=== PATIENT | male | born 1950 | race Caucasian/White ===

== ENCOUNTER 2016-05-28 12:03 | Inpatient (IN) ==
[2016-05-28] MEDS ORDERED: ASPIRIN PO STA (12:14)
--- NOTE | 2016-05-28 12:24 | ED EKG INTERP ---
EKG Interpretation - EKG Time of EKG reading by physician:: 12:16 EKG Read and Signed by:: Jeffrey Vera EKG Interpretation (*Must complete 3 of following elements*): Abnormal Rate: 91 Rhythm: normal sinus rhythm Comments: nonspecific ST abnormality Attestation - Scribe Verification/Attestation Scribe:: Roula Goodwin Acting as Scribe for:: Jeffrey Vera Scribe documention review:: This chart was documented by a scribe and accurately reflects the service the provider performed and the decisions made by the provider.
[2016-05-28 12:32] LABS: MANUAL DIFF NEEDED? NO
[2016-05-28 12:33] LABS: BASO% 0.3 % (0.0-0.8); EOS# 0.09 X1000 (0.0-0.7); EOS% 0.6 % (0.0-10.0); HEMATOCRIT 36.7 % (42.0-52.0); HEMOGLOBIN 12.6 g/dL (14.0-18.0); IMM GRAN# 0.03 X1000 (0.0-0.04); IMM GRAN% 0.2 % (0.0-0.5); LYMPH# 1.65 X1000 (1.2-3.4); LYMPH% 10.7 % (20.5-51.1); MCH 32.3 PG (27-31); MCHC 34.3 g/dL (33-37); MCV 94.1 FL (81-99); MONO# 1.34 X1000 (0.11-0.59); MONO% 8.7 % (1.7-9.3); NEUT% 79.5 % (42.2-75.2); PLT 137 X1000 (130-400)
[2016-05-28 12:49] LABS: INR 0.98 (0.86-1.15); PROTIME 13.3 Seconds (12.1-15.5)
[2016-05-28 12:50] LABS: PTT PL 31.4 Seconds (22.6-43.9)
[2016-05-28] MEDS ORDERED: NS 1,000 ML IV ONE ×3 (13:01→15:20)
[2016-05-28 13:02] LABS: ALBUMIN 3.4 g/dL (3.5-5.0); CALCIUM 8.4 mg/dL (8.8-10.2); MAGNESIUM 1.6 mg/dL (1.5-2.7); POTASSIUM 4.4 mmol/L (3.5-5.1); TOTAL BILIRUBIN 0.5 mg/dL (0.20-1.00); TOTAL PROTEIN 5.8 g/dL (6.3-8.3)
--- NOTE | 2016-05-28 13:03 | PROVIDER DOCUMENTATION ---
HPI-Neurological Disorder - General Chief Complaint: Weakness Stated Complaint: WEAKNESS Time Seen by Provider: 05/28/16 12:33 Source: patient Allergies/Adverse Reactions: Patient Allergies Allergy/AdvReac Type Severity Reaction Status Date / Time No Known Allergies Allergy Verified 03/18/15 18:13 Home Medications: ATORVAstatin [Lipitor] 20 mg PO QHS 03/18/15 Atenolol 25 mg PO DAILY 03/18/15 Cilostazol 100 mg PO BID 03/18/15 Citalopram Hydrobromide [Citalopram HBr] 20 mg PO DAILY 03/18/15 Diclofenac Sodium 75 mg PO BID 03/18/15 Gabapentin 300 mg PO QHS 03/18/15 Lisinopril 10 mg PO DAILY 03/18/15 Oxycodone HCl [Roxicodone] 30 mg PO BID 03/18/15 - History of Present Illness-Neuro Nature of Presenting Problem: Pt is 65 y/o M presents to the ED with generalized weakness. Pt's friend states he has had prior episodes of pain but this episode is worse. Pt's friend states falling three times last night due to being off balance. Pt's friend states Pt had a mini stroke six months ago. Pt states smokes a pack of cigarettes a day. Pt's friend states Pt has had F but no sick contact. Headache Location: reports: other (no CASTELAN). denies: frontal, temporal, occipital , parietal, global Onset/Duration: reports: 2 days ago, last night Timing: reports: still present, intermittent Context: reports: none Character of Altered Mental Status: reports: disoriented, confused, decreased responsiveness Any recent trauma/injury?: reports: none Character of Deficits: reports: impaired speech New weakness or altered sensation location:: reports: general (diffuse) Cognitive Baseline: alert, oriented x3 Gait Baseline: walks without assistance Associated Symptoms: reports: decreased ability to walk or stand, trouble walking, weakness. denies: headache, dizziness, neck/back pain, fever/chills, loss of consciousness, muscle spasms, numbness in legs/feet, vomiting Similar Symptoms Previously?: Yes Recently seen or treated by another doctor?: No Review of Systems - Adult - REVIEW OF SYSTEMS - ADULT Constitutional: reports: fever. denies: chills Eyes: denies: blurred vision, double vision Ears, Nose, Mouth & Throat: denies: ear pain, nose pain, throat pain Cardiovascular: denies: chest pain, heart murmur, irregular heart rate Respiratory: denies: cough, shortness of breath, wheezing Gastrointestinal: denies: abdominal pain, diarrhea, nausea, vomiting Genitourinary: denies: dysuria, hematuria Musculoskeletal: reports: bone pain, back pain, joint pain. denies: neck pain Integumentary: denies: hives, itching Neurological: denies: dizziness/vertigo, headache/migraines Psychiatric: reports: no symptoms reported Endocrine: reports: no symptoms reported Hematologic/Lymphatic: reports: no symptoms reported Allergic/Immunologic: reports: no symptoms reported All Other Systems: Reviewed and Negative Past History - Adult - PAST MEDICAL HISTORY-ADULT Review of Records: reports: Nursing Assessment Review, Medications Reviewed, Social history reviewed & non-contributory. Major Childhood Illnesses: reports: denies history Cardiovascular: reports: HTN Respiratory: reports: COPD, sleep apnea Gastrointestinal: reports: denies history Obstetrical/Gynecological: reports: denies history Genitourinary: reports: denies history Musculoskeletal: reports: denies history Neurological: reports: denies history Psychiatric: reports: anxiety, depression Endocrine/Immune: reports: denies history Other Conditions: reports: denies history - PRIOR SURGERIES/PROCEDURES Surgical/Procedure History: reports: orthopedic (extremity), back/neck - IMMUNIZATION STATUS Childhood Immunizations: See Nurse Assessment Flu Vaccine: See Nurse Assessment - FAMILY HISTORY Family History: reviewed, not pertinent - SOCIAL HISTORY Smoking: cigarettes, greater than 1 pack/day Provider spent 3-5 mins advising pt. on dangers of tobacco.: Discussed manners to quit use, and f/u contacts for add'l counseling. Substance Use: denies Living Situation: family Physical Exam- Neurological - Physical Exam-Neuro General Appearance: appears well, alert, no apparent distress, slow to respond Eye Exam: bilateral eye: normal inspection, PERRL, EOMI HENMT: normocephalic/atraumatic, moist mucous membranes, normal ENT inspection, TMs normal, pharynx normal Head Injury: no evidence of injury Neck: non-tender, full range of motion, supple, normal inspection Respiratory: chest non-tender, lungs clear, normal breath sounds, no pleuratic chest pain, no respiratory distress, no accessory muscle use Cardiovascular: normal peripheral pulses, regular rate, rhythm, no edema, no gallop, no JVD, no murmur Abdominal Exam: normal bowel sounds, non tender, soft, no organomegaly, no pulsatile mass Lymphatic: no adenopathy Extremity: normal range of motion, non-tender, normal gait, normal inspection, no pedal edema, no calf tenderness, normal capillary refill, 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 Exam: normal hearing, normal speech, PERRL Coordination/Gait: normal finger to nose, normal gait, negative Romberg's sign Motor/Sensory: no motor deficit, no sensory deficit, no pronator drift, negative Babinski's sign Neurologic: abnormal gait, motor weakness, other (ataxia LLE and bilateral upper extremity) Integumentary: normal color, normal turgor, warm/dry Psych/Mental Status: normal mood/affect, normal thought content, normal thought process, oriented x 3, disheveled Progress - PLAN OF CARE/RESULTS Progress/Plan/Lab Results: Laboratory Tests 05/28/16 05/28/16 05/28/16 12: 12: 12:29 WBC RBC Hgb Hct MCV MCH MCHC RDW Std Deviation Plt Count MPV Immature Gran % (Auto) Neut % (Auto) Lymph % (Auto) [place] % (Auto) Eos % (Auto) Baso % (Auto) Immature Gran # (Auto) Neut # Lymph # [place] # Eos # Baso # PT INR APTT (Factor Assay) D-Dimer Sodium 130 L Potassium 4.4 Chloride 97 L Carbon Dioxide 18 L Anion Gap 16 BUN 26 H Creatinine 2.0 H Estimated GFR/1.73 m2 34 BUN/Creatinine Ratio 13 Glucose 95 Calculated Osmolality 265 Calcium 8.4 L Magnesium 1.6 Total Bilirubin 0.50 AST 69 H ALT 28 Alkaline Phosphatase 62 Troponin T 0.071 Rrk-N-Bgkahjuujma Pept 3841 H Total Protein 5.8 L Albumin 3.4 L Globulin 2.0 Albumin/Globulin Ratio 1.0 05/28/16 05/28/16 12:29 12:29 WBC 15.49 H RBC 3.90 L Hgb 12.6 L Hct 36.7 L MCV 94.1 MCH 32.3 H MCHC 34.3 RDW Std Deviation 13.6 Plt Count 137 MPV 10.0 Immature Gran % (Auto) 0.2 Neut % (Auto) 79.5 H Lymph % (Auto) 10.7 L [place] % (Auto) 8.7 Eos % (Auto) 0.6 Baso % (Auto) 0.3 Immature Gran # (Auto) 0.03 Neut # 12.34 H Lymph # 1.65 [place] # 1.34 H Eos # 0.09 Baso # 0.04 PT 13.3 INR 0.98 APTT (Factor Assay) 31.4 D-Dimer 1.43 H Sodium Potassium Chloride Carbon Dioxide Anion Gap BUN Creatinine Estimated GFR/1.73 m2 BUN/Creatinine Ratio Glucose Calculated Osmolality Calcium Magnesium Total Bilirubin AST ALT Alkaline Phosphatase Troponin T Iyt-K-Ladpdsbwqyw Pept Total Protein Albumin Globulin Albumin/Globulin Ratio Orders Category Date Time Status Cardiac Monitoring DIRECTED Care 05/28/16 12:15 Active Oxygen Therapy- ED Nursing DIRECTED Care 05/28/16 12:15 Active Saline Loc NOW Care 05/28/16 12:15 Active CHEST-2 VIEWS [RAD] Stat Exams 05/28/16 12:15 Taken HEAD W/O CONTRAST [CT] Stat Exams 05/28/16 13:00 Ordered ABG [RESP] Routine Lab 05/28/16 13:06 Ordered CBC WITH ELECTRONIC DIFF [HEME] Stat Lab 05/28/16 12:29 Completed CK PROFILE [SP CHEM] Stat Lab 05/28/16 12:29 Results COMPREHENSIVE METABOLIC PANEL [CHEM] Stat Lab 05/28/16 12:29 Results D-DIMER PL [COAG] Stat Lab 05/28/16 12:29 Completed LACTATE, PLASMA [CHEM] Stat Lab 05/28/16 13:06 Ordered MAGNESIUM [CHEM] Stat Lab 05/28/16 12:29 Results PRO B-NATRIURETIC PEPTIDE Stat Lab 05/28/16 12:[address]IME WITH INR [address] [COAG] Stat Lab 05/28/16 12:[address] [COAG] Stat Lab 05/28/16 12:29 Completed TROPONIN T Stat Lab 05/28/16 12:29 Completed UA [URINALYSIS PL W/POSS RFLX CULT] [URINALYSIS] Stat Lab 05/28/16 13:06 Uncollected 0.9% Sodium Chloride Inj [Ns] 1,000 ml Med 05/28/16 13:01 Active IV 999 mls/hr Albuterol 2.5MG/Ipratrop 0.5MG [Duoneb (A & A)] Med 05/28/16 13:06 Discontinued 9 ml INH NOW ONE Aspirin Med 05/28/16 12:14 Discontinued 325 mg PO STAT STA Aerosol Treatments Routine Oth 05/28/16 13:07 Active Aerosol Treatments Stat Oth 05/28/16 13:07 Active EKG [EKG] Stat Ther 05/28/16 12:15 Ordered Vital Signs - 24 hr 05/28/16 05/28/16 12:16 12:37 Temperature 98 F 98.6 F Pulse Rate 91 H 90 Respiratory 18 23 Rate Blood Pressure 084/045 83/45 O2 Sat by Pulse 98 93 L Oximetry Laboratory Tests 05/28/16 05/28/16 05/28/16 12:16 12:29 12:29 WBC RBC Hgb Hct MCV MCH MCHC RDW Std Deviation Plt Count MPV Immature Gran % (Auto) Neut % (Auto) Lymph % (Auto) [place] % (Auto) Eos % (Auto) Baso % (Auto) Immature Gran # (Auto) Neut # Lymph # [place] # Eos # Baso # PT INR APTT (Factor Assay) D-Dimer Sodium 130 L Potassium 4.4 Chloride 97 L Carbon Dioxide 18 L Anion Gap 16 BUN 26 H Creatinine 2.0 H Estimated GFR/1.73 m2 34 BUN/Creatinine Ratio 13 Glucose 95 POC Glucose 91 Calculated Osmolality 265 Calcium 8.4 L Magnesium 1.6 Total Bilirubin 0.50 AST 69 H ALT 28 Alkaline Phosphatase 62 Creatine Kinase 3008 H Creatine Kinase Index 2.8 H CK-MB (CK-2) 82.74 H Troponin T 0.071 Tgg-V-Azdfkhppgyl Pept Total Protein 5.8 L Albumin 3.4 L Globulin 2.0 Albumin/Globulin Ratio 1.0 Plasma Lactate 05/28/16 05/28/16 05/28/16 12:29 12:29 12:29 WBC 15.49 H RBC 3.90 L Hgb 12.6 L Hct 36.7 L MCV 94.1 MCH 32.3 H MCHC 34.3 RDW Std Deviation 13.6 Plt Count 137 MPV 10.0 Immature Gran % (Auto) 0.2 Neut % (Auto) 79.5 H Lymph % (Auto) 10.7 L [place] % (Auto) 8.7 Eos % (Auto) 0.6 Baso % (Auto) 0.3 Immature Gran # (Auto) 0.03 Neut # 12.34 H Lymph # 1.65 [place] # 1.34 H Eos # 0.09 Baso # 0.04 PT 13.3 INR 0.98 APTT (Factor Assay) 31.4 D-Dimer 1.43 H Sodium Potassium Chloride Carbon Dioxide Anion Gap BUN Creatinine Estimated GFR/1.73 m2 BUN/Creatinine Ratio Glucose POC Glucose Calculated Osmolality Calcium Magnesium Total Bilirubin AST ALT Alkaline Phosphatase Creatine Kinase Creatine Kinase Index CK-MB (CK-2) Troponin T Fyu-X-Txjwibphhoz Pept 3841 H Total Protein Albumin Globulin Albumin/Globulin Ratio Plasma Lactate 05/28/16 13:20 WBC RBC Hgb Hct MCV MCH MCHC RDW Std Deviation Plt Count MPV Immature Gran % (Auto) Neut % (Auto) Lymph % (Auto) [place] % (Auto) Eos % (Auto) Baso % (Auto) Immature Gran # (Auto) Neut # Lymph # [place] # Eos # Baso # PT INR APTT (Factor Assay) D-Dimer Sodium Potassium Chloride Carbon Dioxide Anion Gap BUN Creatinine Estimated GFR/1.73 m2 BUN/Creatinine Ratio Glucose POC Glucose Calculated Osmolality Calcium Magnesium Total Bilirubin AST ALT Alkaline Phosphatase Creatine Kinase Creatine Kinase Index CK-MB (CK-2) Troponin T Kkb-Q-Oywokyxzykg Pept Total Protein Albumin Globulin Albumin/Globulin Ratio Plasma Lactate 1.1 - XRAY 1 XRAY: Bilateral XRAY Study: Chest Impression: Abnormal XRAY Interpretation: bilateral infiltrates - CT/MRI 1 CT Study: Head Impression: Normal CT Results: no acute disease or changes from prior - CONSULTS/PCP/HOSPITALIST Notification #1 *Consult/PCP/Hospitalist*: Dr. Haddad Time Discussed: 13:43 (Dr. Haddad accepted admit ) Reason/Comments: Dr. Vera consults with Dr. Haddad about admit of Pt Consult Disposition: Admit Departure - Departure Time of Disposition Order: 14:15 DIAGNOSIS: Rhabdomyolysis Qualifiers: Rhabdomyolysis type: non-traumatic Qualified Code(s): M62.82 - Rhabdomyolysis Pneumonia Qualifiers: Pneumonia type: due to unspecified organism Laterality: bilateral Lung location : unspecified part of lung Qualified Code(s): J18.9 - Pneumonia, unspecified organism Disposition: ADMITTED INPATIENT 09 Certified Medical Emergency: Emergent Condition: Stable Attestation - Scribe Verification/Attestation Scribe:: Roula Goodwin Acting as Scribe for:: Jeffrey Vera Scribe documention review:: This chart was documented by a scribe and accurately reflects the service the provider performed and the decisions made by the provider.
[2016-05-28] MEDS ORDERED: DUONEB (A & A) INH ONE (13:06)
[2016-05-28 13:13] LABS: BLOOD TYPE ARTERIAL; SAMPLE BLOOD
[2016-05-28] MEDS ORDERED: LEVAQUIN 750 MG/D5W 150 ML IV ONE (13:13)
--- NOTE | 2016-05-28 13:25 | EKG Report ---
Test Performed on : 05/28/2016 12:16:54 PM Test Reason : CHEST PAIN Blood Pressure : / mmHG Vent. Rate : 091 BPM Atrial Rate : 091 BPM P-R Int : 152 ms QRS Dur : 072 ms QT Int : 354 ms P-R-T Axes : 054 056 017 degrees QTc Int : 435 ms Normal sinus rhythm. Nonspecific ST abnormality Abnormal ECG No previous ECGs available Unconfirmed Result
[2016-05-28 13:26] LABS: CK INDEX 2.8 (0.0-2.5); CK-MB 82.74 ng/mL (0.0-5.0)
[2016-05-28] MEDS ORDERED: ZOSYN 3.375 GM/NS 50 ML IV ONE (13:34)
--- NOTE | 2016-05-28 13:36 | Diag Imaging Result Document ---
PROCEDURE NAME: CHEST-2 VIEWS - 05/28/2016 FRONTAL AND LATERAL CHEST, 2 VIEWS: FINDINGS: There are dense infiltrates throughout the left lung and in the upper right lung. Heart is not enlarged. The vessels are not distended. No pleural effusions. No free air beneath the diaphragm. Mild scoliosis. IMPRESSION: Bilateral infiltrates.
--- NOTE | 2016-05-28 14:10 | Diag Imaging Result Document ---
PROCEDURE NAME: HEAD W/O CONTRAST - 05/28/[address]: A CT dose reduction protocol was used. COMPARISON: 03/18/2015. FINDINGS: There is moderate to severe patient motion artifact throughout the exam. The ventricles and sulci are grossly normal. No intracranial mass or hemorrhage. The skull is intact. There is some chronic sinusitis of ethmoid air cells and the right maxillary sinus, stable from prior. IMPRESSION: No acute disease or change from prior. [facility]
[2016-05-28 14:15] LABS: BE -7.1 mmoll (-3.0-3.0); DRAW SITE L RADIAL; METHB 0.6 % (0.0-1.5); O2(CT) 14.4 mL/dL (15.0-23.0); PCO2(98.6) 44 mmHg (35-45); PO2(98.6) 69 mmHg (60-100); SAO2 96.7 % (95.0-100.0); THB 11.7 g/dL (11.5-17.4); pH(98.6) 7.26 (7.35-7.45)
[2016-05-28 14:20] LABS: ALLEN TEST YES; MODALITY CANNULA
[2016-05-28] MEDS ORDERED: NS 2,000 ML ONE (15:21)
[2016-05-28] MEDS ORDERED: DOPAMINE 800 MG/D5W (PARKWAY ONLY!) 250 ML IV ONE (15:30)
[2016-05-28] MEDS ORDERED: NS 500 ML IV ONE (15:33)
[2016-05-28 17:32] LABS: BE -8.4 mmoll (-3.0-3.0); BLOOD TYPE ARTERIAL; DRAW SITE L RADIAL; METHB 1.2 % (0.0-1.5); PCO2(98.6) 47 mmHg (35-45); PO2(98.6) 79 mmHg (60-100); SAMPLE BLOOD; SAO2 96.1 % (95.0-100.0); THB 11.9 g/dL (11.5-17.4); pH(98.6) 7.22 (7.35-7.45)
[2016-05-28] MEDS ORDERED: SODIUM BICARBONATE 8.4% IV ONE (17:36)
[2016-05-28] MEDS ORDERED: VANCOMYCIN IV PER PHARMACY MISC SCH (17:45)
[2016-05-28 17:47] LABS: ALLEN TEST YES; MODALITY VENTIMASK
[2016-05-28 18:34] LABS: UR AMPHETAMINES QUAL NONE DETECTED (NONE DETECT); UR BARBITUATES QUAL NONE DETECTED (NONE DETECT); UR BENZODIAZEPIN QUAL NONE DETECTED (NONE DETECT); UR COCAINE QUAL NONE DETECTED (NONE DETECT); UR MDMA QUAL NONE DETECTED (NONE DETECT); UR METHADONE QUAL NONE DETECTED (NONE DETECT)
[2016-05-28 18:35] LABS: UR CANNABINOIDS QUAL NONE DETECTED (NONE DETECT); UR METHAMPHETAMINE QUAL NONE DETECTED (NONE DETECT); UR OPIATES QUAL NONE DETECTED (NONE DETECT); UR OXYCODONE QUAL PRESUMPTIVE POSITIVE (NONE DETECT); UR PCP QUAL NONE DETECTED (NONE DETECT); UR TCA QUAL NONE DETECTED (NONE DETECT)
[2016-05-28] MEDS: PROTONIX IV SCH (18:57)
[2016-05-28] MEDS: SODIUM BICARBONATE 8.4% 150 MEQ in D5W 1,000 ML IV SCH (18:58)
[2016-05-28] MEDS ORDERED: VANCOMYCIN 2,000 MG in NS 500 ML IV ONE (19:00)
[2016-05-28] MEDS ORDERED: SODIUM BICARBONATE 8.4% ONE (19:01)
[2016-05-28] MEDS ORDERED: OFIRMEV 1000 MG/ISOTONIC SOLN 100 ML IV ONE (19:04)
[2016-05-28 19:07] LABS: URINE CULTURE PL NEEDED? NO; URINE SOURCE CATH
[2016-05-28 19:11] LABS: BILIRUBIN URINE NEGATIVE (NEGATIVE); BLOOD URINE 1+ (NEGATIVE); CLARITY CLEAR (CLEAR); COLOR YELLOW; GLUCOSE URINE NEGATIVE (NEGATIVE); LEUKOCYTES URINE NEGATIVE (NEGATIVE); NITRITE URINE NEGATIVE (NEGATIVE); PROTEIN URINE TRACE mg/dL (NEGATIVE); UROBILINOGEN URINE NORMAL
[2016-05-28] MEDS: ATIVAN IV PRN (19:45)
[2016-05-28] MEDS: NS 1,000 ML IV SCH (19:45)
[2016-05-28 19:55] LABS: URINE CAST GRANULAR PRESENT /LPF; URINE EPITHELIAL CELLS <10 /HPF (<10); URINE RBC <10 /HPF (<10); URINE WBC <10 /HPF (<10)
[2016-05-28 19:56] LABS: URINE CRYSTAL NONE SEEN /HPF
[2016-05-28] MEDS: ZOSYN 3.375 GM/NS 50 ML IV SCH (20:05)
--- NOTE | 2016-05-28 20:05 | HISTORY AND PHYSICAL ---
CHIEF COMPLAINT: Shortness of breath and weakness. HISTORY OF PRESENT ILLNESS: This is a 65-year-old male with hypertension, dyslipidemia, presenting with weakness. He has had increasing pain over the last several days. He fell 3 times last night due to being off balance. Reportedly a mini-stroke about 6 months ago. He has had cough. He has also had shortness of breath. In the ER, he was found to have rhabdomyolysis. He also had progressive hypotension, acute kidney injury, and has been followed since that time. He is a Dr. Raymundo patient and he was just here in February for TIA. In any case, today he is hypotensive, obviously in shock, presumably septic from bilateral infiltrates consistent with pneumonia versus developing ARDS, and he was admitted for treatment. PAST MEDICAL HISTORY: 1. Hypertension. 2. Dyslipidemia. 3. Anxiety/depression. 4. Chronic pain disorder. He seen by Dr. Bledsoe. PAST SURGICAL HISTORY: He has had back and neck surgery. FAMILY HISTORY: Reviewed and noncontributory. SOCIAL HISTORY: He is at least a pack a year smoker. He has done that for over 25 years. Reportedly occasional alcohol. He tells me he does not drink every day, but reportedly, his significant other says he drinks every day up to a pint a day. His last drink was about 2 days ago. ALLERGIES: No known drug allergies. MEDICATIONS: He is currently on by report atenolol 25 daily, cilostazol 100 b.i.d., Celexa 20 daily, diclofenac 75 b.i.d., gabapentin 300 daily, Lipitor 20 daily, lisinopril 10 daily, and oxycodone. REVIEW OF SYSTEMS: Negative. PHYSICAL EXAMINATION: VITAL SIGNS: Blood pressure 98/57, heart rate of 89, respiratory rate 20, temperature 97.8 degrees, 96% on 4 L. His blood pressure is as low as in the 70s systolic. No temperature. GENERAL: A well-developed male, in no acute distress. HEAD: Normocephalic, atraumatic. EYES: Pupils equal, round, reactive to light. Extraocular movements were intact. EAR/NOSE/THROAT: He had moist mucous membranes. NECK: Supple. CARDIOVASCULAR: Regular rate and rhythm. No murmurs, gallops, or rubs. PULMONARY: Bilateral breath sounds. Clear to auscultation. GI: Soft, nontender, nondistended. Bowel sounds are positive. EXTREMITIES: No clubbing or cyanosis. LYMPHATICS: No peripheral edema. NEUROLOGICAL: Nonfocal. LABORATORY DATA: White count 15,000. Chemistry showed a BUN and creatinine of 26 and 2, which he had normal kidney function in February. CPK of 3008 which was normal again in February. CK-MB of 82.4. Troponin was 0.071. Plasma lactate was normal. Urine drug screen positive for oxycodone, which I think he takes. Blood gas, pH 7.22, pCO2 47, PaO2 79, O2 saturation was 96%. D-dimer was elevated. PROBLEM LIST: A 65-year-old male with history of chronic obstructive pulmonary disease , hypertension, dyslipidemia, peripheral vascular disease presenting with septic shock, acute respiratory failure secondary to multilobar pneumonia. 1. Multilobar pneumonia. We will continue empiric antibiotics. He is on vancomycin, Levaquin and Zosyn. Continue breathing treatments. We will get a Pulmonary evaluation in the morning. 2. Septic shock. He has had about 4 L resuscitated. We have put him on Miki-Synephrine for blood pressure support. Wean as tolerated. 3. Acute kidney injury with the setting of rhabdomyolysis. We will continue to follow and I have initiated a bicarb drip because he is acidotic. Unclear why he is acidotic. His lactate was actually normal and it was repeated and was normal. He is not diabetic and his blood sugars have been stable. So it is an odd situation here. The alcohol levels were normal as well. It may be related to azotemia, but again, his BUN is only about 26. We will continue to follow very closely. DISPOSITION: Pending above issues. TIME SPENT: 35 minute critical care time for pressors and sepsis management. We will continue to follow.
[2016-05-28] MEDS: DUONEB (A & A) INH SCH (22:35)
[2016-05-29] MEDS: ZOSYN 3.375 GM/NS 50 ML IV SCH ×2 (01:53→08:49)
[2016-05-29] MEDS: DUONEB (A & A) INH SCH ×4 (03:01→22:36)
[2016-05-29] MEDS: ATIVAN IV PRN ×4 (04:36→17:30)
[2016-05-29 05:09] LABS: HEMATOCRIT 35.8 % (42.0-52.0); HEMOGLOBIN 11.9 g/dL (14.0-18.0); MCH 31.4 PG (27-31); MCHC 33.2 g/dL (33-37); MCV 94.5 FL (81-99); MPV 10.3 FL (7.4-10.4); RBC 3.79 XMIL (4.7-6.1)
[2016-05-29 05:29] LABS: AGAP 8; ALKALINE PHOSPHATASE 56 U/L (32-122); BUN 16 mg/dL (8-22); CALCIUM 7.7 mg/dL (8.8-10.2); CHLORIDE 104 mmol/L (98-107); COSMO 279; GOT 81 U/L (10-34); GPT 28 U/L (10-44); MAGNESIUM 1.5 mg/dL (1.5-2.7); POTASSIUM 3.9 mmol/L (3.5-5.1); SODIUM 138 mmol/L (136-145); TCO2 26 mmol/L (25-35); TOTAL PROTEIN 4.8 g/dL (6.3-8.3)
[2016-05-29] MEDS: DUONEB (A & A) INH PRN ×3 (05:30→13:14)
[2016-05-29 05:57] LABS: BE 1.6 mmoll (-3.0-3.0); BLOOD TYPE ARTERIAL; DRAW SITE R BRACHIAL; METHB 1.2 % (0.0-1.5); O2(CT) 14.8 mL/dL (15.0-23.0); PCO2(98.6) 46 mmHg (35-45); PO2(98.6) 59 mmHg (60-100); SAMPLE BLOOD; SAO2 93.8 % (95.0-100.0); THB 11.7 g/dL (11.5-17.4); pH(98.6) 7.38 (7.35-7.45)
[2016-05-29 06:00] LABS: ALLEN TEST NO; MODALITY VENTIMASK
[2016-05-29] MEDS ORDERED: LOVENOX SUBQ SCH (06:00)
[2016-05-29] MEDS ORDERED: HALDOL IV ONE ×2 (06:44→18:19)
[2016-05-29] MEDS: NS 1,000 ML IV SCH ×3 (08:52→21:21)
--- NOTE | 2016-05-29 08:58 | Diag Imaging Result Document ---
PROCEDURE NAME: CHEST-PORTABLE - 05/29/2016 PORTABLE CHEST X-RAY: COMPARISON: 05/28/2016. FINDINGS: There is slight worsening in the density of the significant bilateral infiltrates, left greater than right. The appearance suggests pneumonia. Heart size remains normal. IMPRESSION: Slight worsening in the bilateral infiltrates.
[2016-05-29] MEDS: SODIUM BICARBONATE 8.4% 150 MEQ in D5W 1,000 ML IV SCH (10:19)
[2016-05-29] MEDS: LIBRIUM PO SCH ×2 (10:45→17:11)
[2016-05-29] MEDS ORDERED: MOTRIN PO ONE (12:36)
[2016-05-29] MEDS ORDERED: TYLENOL PO PRN (12:43)
[2016-05-29] MEDS: HALDOL IV PRN ×2 (12:52→17:11)
--- NOTE | 2016-05-29 13:18 | PROGRESS NOTE ---
DATE: 05/29/2016 SUBJECTIVE: The patient is very confused and agitated today. Progressively short of breath. Dropped his oxygen levels this morning into the 70s. Required initially non-rebreather and now BiPAP. OBJECTIVE: Vital Signs: Blood pressure 195/55, heart rate of 96, respiratory rate 18, temperature 98.4 degrees, although his most recent temp I think was 101. Cardiovascular: He is tachy. Pulmonary: Diffuse rhonchi and rales. GI: Soft, nontender, nondistended. Bowel sounds are positive. LABORATORY DATA: White count is down to 9, hemoglobin and hematocrit 11 and 35, platelets of 102. Chemistry showed phosphate of 2.3, AST of 81, CPK is still 3129. Troponin has bumped up to 0.097. PROBLEM LIST: 1. Septic shock associated with multilobar pneumonia. He is still on vasopressors. We will continue treatment and follow. He is on broad-spectrum antibiotics. We are awaiting evaluation by pulmonary service. Continue volume resuscitation. 2. Multilobar pneumonia. Continue antibiotics and breathing treatments and follow. 3. Rhabdomyolysis with normal renal function. Continue bicarbonate drip and monitor. CPK still elevated; we will continue to monitor very closely. DISPOSITION: Pending multiple issues. Fortunately respiratory status is stable and positive pressure ventilation, but he may clinically deteriorate, so we will continue to closely monitor in the ICU.
[2016-05-29] MEDS ORDERED: VANCOMYCIN 1,500 MG in NS 250 ML IV SCH (14:00)
[2016-05-29] MEDS: LEVAQUIN 500 MG/D5W 100 ML IV SCH (14:28)
[2016-05-29 14:51] LABS: CK-MB 29.07 ng/mL (0.0-5.0)
--- NOTE | 2016-05-29 14:52 | EKG Report ---
Test Performed on : 05/29/2016 2:07:55 PM Test Reason : elevated troponin Blood Pressure : / mmHG Vent. Rate : 102 BPM Atrial Rate : 102 BPM P-R Int : 152 ms QRS Dur : 080 ms QT Int : 356 ms P-R-T Axes : 060 020 001 degrees QTc Int : 463 ms Sinus tachycardia. Low voltage QRS Cannot rule out Anterior infarct , age undetermined Abnormal ECG When compared with ECG of 28-MAY-2016 12:16, (Unconfirmed) No significant change was found Confirmed by Eddie Vasquez MD ([id number]) on 06/01/2016 11:55:53 PM
[2016-05-29] MEDS: ZOSYN 4.5 GM/NS 100 ML IV SCH ×2 (15:45→19:15)
--- NOTE | 2016-05-29 16:50 | CONSULTATION ---
DATE OF CONSULTATION: 05/29/2016 INDICATION FOR THE CONSULTATION: Elevated troponin. HISTORY OF PRESENT ILLNESS: Mr. Hoang is a 65-year-old male with hypertension, dyslipidemia and peripheral arterial disease. He presented with complaints of altered mental status and was found to have rhabdomyolysis, acute renal insufficiency and likely sepsis. He was placed on pressors. Currently, he is on BiPAP. Patient is not able to provide any history given his acute confusion. His is present providing this. She does report that he has had fevers over the last couple of days in addition to diffuse weakness, falls as well as dizziness. His oral intake has decreased somewhat. She does note that he takes chronic pain medications at home including or Roxicodone as well as significant alcohol intake. There has been no obvious dysuria. There have been some complaints of cough. No obvious nausea, vomiting or diarrhea. PAST MEDICAL HISTORY: 1. Significant for hypertension. 2. Hyperlipidemia. 3. Chronic pain. 4. Peripheral arterial disease. SOCIAL HISTORY: He smokes at least a pack a day. He has done that for more than 25 years. He does not drink alcohol and his significant other reports that this is up to a pint daily. Last drink was around 2 days ago. In addition, he also takes chronic narcotic prescription pain medication. REVIEW OF SYSTEMS: Unable to be obtained secondary to the patient's altered mental status. PHYSICAL EXAMINATION: Vital Signs: He is afebrile. At noon today, he was as high as 101.3. His heart rates have been in the 90s to 120s. His blood pressure is 128/82. General: He is in no acute distress. He is acutely confused. He does not open his eyes. BiPAP is in place. He does not respond to commands. HEENT: Oropharynx is moist. Poor dentition. Eye examination shows pink conjunctivae. White sclerae. Neck: Examination shows no obvious thyromegaly or thyroid tenderness. Cardiovascular: He sounds to be in a regular rate and rhythm. He has a very difficult exam secondary to movement. Extremities: He has no lower extremity edema. He has warm and well perfused lower extremities. Chest: Clear bilaterally. He has no increased work of breathing. Abdomen: Soft, nontender, nondistended. He has no obvious organomegaly. Skin Exam: Warm and dry throughout without any rashes. Neurologic/Psychiatric: Exams unable to be performed secondary to the patient's acute confusion. PERTINENT DATA: His white count is 9.2, his hematocrit is 35.8, platelet count is 102. ABG shows a pH of 7.38, pCO2 of 46, pO2 of 59 and that was performed today on 50% Ventimask. His sodium is 138, potassium 3.9, his BUN is 16 creatinine is 1. His albumin is 3. His initial cardiac enzymes are troponin was 0.071 on the . This subsequently has trended up as high as 0.331 today. His CK initially was 3008 and has trended as high as 3129 and is now down to 2860. His MB fraction is 29.07 given an index of 1.0. His albumin level was 3. His UDS was positive for oxycodone. His chest x-ray showed slight worsening of bilateral infiltrates. His electrocardiogram demonstrated sinus rhythm, 91 beats per minute. No evidence of acute ischemic changes or evidence for previous infarct. He does have slight ST depression in the lateral leads. Subsequent EKG at 1407 today continues to show slight ST depression in the lateral leads. No evidence of acute injury pattern. His head CT showed no acute disease or change from prior. ASSESSMENT: 1. Severe sepsis. 2. Acute renal insufficiency. 3. Rhabdomyolysis. 4. Elevated troponin. 5. Possible alcohol withdrawal as well as narcotic withdrawal. 6. Respiratory failure. PLAN: Patient seems acutely septic and given his presentation of acute renal insufficiency (which has since resolved) and his acute septic picture, that is likely the source of the elevation of the troponin. He does not have any signs or symptoms suggestive of acute coronary syndrome. An echocardiogram is being performed. I would initiate aspirin therapy if possible and treat the patient conservatively with supportive care presently. No further recommendations at this time.
[2016-05-29 17:00] LABS: BE 7.1 mmoll (-3.0-3.0); BLOOD TYPE ARTERIAL; DRAW SITE R RADIAL; METHB 1.2 % (0.0-1.5); PCO2(98.6) 46 mmHg (35-45); PO2(98.6) 65 mmHg (60-100); SAMPLE BLOOD; SAO2 95.8 % (95.0-100.0); THB 10.7 g/dL (11.5-17.4); pH(98.6) 7.45 (7.35-7.45)
[2016-05-29 18:03] LABS: ALLEN TEST YES; MODALITY BI PAP
[2016-05-29] MEDS: ATIVAN IV SCH ×2 (18:22→21:18)
[2016-05-29] MEDS ORDERED: MORPHINE IV ONE (18:22)
[2016-05-29] MEDS: SODIUM CHLORIDE 0.9% INJ SCH (19:01)
[2016-05-29] MEDS: PROTONIX IV SCH (19:01)
[2016-05-30] MEDS: MORPHINE IV PRN ×3 (00:32→08:59)
[2016-05-30] MEDS: SODIUM BICARBONATE 8.4% 150 MEQ in D5W 1,000 ML IV SCH (00:36)
[2016-05-30] MEDS: ATIVAN IV SCH ×3 (01:23→10:08)
[2016-05-30] MEDS: HALDOL IV PRN ×2 (01:36→06:29)
[2016-05-30] MEDS: ATIVAN IV PRN ×2 (02:26→07:51)
[2016-05-30 02:33] LABS: BE 4.1 mmoll (-3.0-3.0); BLOOD TYPE ARTERIAL; O2(CT) 14.1 mL/dL (15.0-23.0); PO2(98.6) 58 mmHg (60-100); SAMPLE BLOOD; SAO2 92.4 % (95.0-100.0); THB 11.3 g/dL (11.5-17.4)
[2016-05-30] MEDS: ZOSYN 4.5 GM/NS 100 ML IV SCH ×4 (02:35→20:19)
[2016-05-30 02:38] LABS: ALLEN TEST YES; DRAW SITE R RADIAL; MODALITY BI PAP; PCO2(98.6) 65 mmHg (35-45)
[2016-05-30] MEDS ORDERED: HALDOL IV ONE (02:49)
[2016-05-30] MEDS ORDERED: ATIVAN IV ONE ×3 (02:51→11:06)
--- NOTE | 2016-05-30 04:34 | CONSULTATION ---
DATE OF CONSULTATION: 05/29/2016 ATTENDING PHYSICIAN: Dr. Haddad REASON FOR CONSULTATION: Hypoxia, respiratory failure. HISTORY OF PRESENTING ILLNESS: Mr. Hoang is a 65-year-old male with history of hypertension, hyperlipidemia, active tobacco dependency and alcohol abuse, who was admitted with altered mental status and rhabdomyolysis. He was noted to have acute renal insufficiency and sepsis. During his hospital course, patient was noted to have increased respiratory distress and was placed in the ICU for respiratory monitoring. He has been on BiPAP for hypercapnia and acidosis. Please note that patient is unresponsive and is not able to follow any commands or give any history. History is positive for fevers, diffuse weakness and dizziness for the past few days. REVIEW OF SYSTEMS: Unobtainable. ALLERGIES: No known drug allergies. PAST MEDICAL HISTORY: Hypertension, hyperlipidemia, chronic pain and anxiety. PAST SURGICAL HISTORY: Back and neck surgery. FAMILY HISTORY: Unremarkable. SOCIAL HISTORY: Smokes about a pack a day and drinks alcohol every day, about a pint. MEDICATIONS: Atenolol, Celexa, diclofenac, Lipitor, lisinopril and oxycodone. PHYSICAL EXAMINATION: Vital Signs: Blood pressure is 128/82, pulse rate is 98, respiratory rate 18, temperature 99 degrees, oxygen saturation 99% on BiPAP 18/8 with 80% FiO2. General: The patient is agitated and altered. Not opening eyes. Not responsive to verbal commands. Head and Neck: Normocephalic, atraumatic. Heart: S1-S2 heard. Lungs: Crackles noted bilaterally. Abdomen: Soft. Extremities: No edema. ENVIRONMENTAL COMMUNICATIONS SPECIALIST: Confused. LABS: White count was 15,000 on admission. Today, it is 9.28, hemoglobin 11.9 today. Hematocrit 35. Electrolytes: Sodium 138, potassium 3.9, chloride 104, anion gap is 8, BUN 16, creatinine 1.6, glucose is 104, troponin 0.331, CK was 3129, LFTs: AST 81, ALT 28, phosphorus 2.3. Calcium 7.7. Blood gas on admission was 7.26, pCO2 of 44, PO2 69, oxygen saturation 87% on nasal cannula. I ordered and reviewed the ABG results which showed the pH of 7.45, pCO2 46, PO2 65, oxygen saturation 92% on BiPAP 18/8 with 60% FiO2. Cultures negative so far. The patient had a chest x-ray which showed slight worsening of bilateral infiltrates. ASSESSMENT: 1. Altered mental status secondary to alcohol withdrawal plus encephalopathy from sepsis. 2. Septic/septic shock. 3. Bilateral pulmonary infiltrates secondary to pneumonia. 4. Rhabdomyolysis. 5. Hypoxic respiratory failure. 6. Metabolic alkalosis. PLAN: 1. Altered mental status secondary to alcohol withdrawal and sepsis, induced encephalopathy. Recommend supportive care. Ordered repeat ABGs to assess the wound the possibility of discontinuing the BiPAP since patient is a very high risk for aspiration from is altered mental status which is a related contraindication for BiPAP usage. ABG showed normal pH and compensated CO2 but has elevated bicarbonate level which is against the diagnosis of septic shock. 2. Sepsis/septic shock secondary to pneumonia. Cannot rule out other sources. The patient is currently on broad-spectrum antibiotics. Follow up sputum and blood cultures. His white count appears to have normalized. Repeat lactic acid is recommended. Monitor urine output. I believe the patient has gotten echocardiogram. The results of the echocardiogram and further input will be provided by Cardiology, Dr. Obregon. Continue pressors to maintain a MAP of around 65. 3. Bilateral pneumonia. Cannot completely rule out the possibility of ARDS. 4. Bilateral pulmonary infiltrates secondary to pneumonia versus ARDS. Continue broad-spectrum antibiotics. Follow up final culture results. 5. Rhabdomyolysis. Status post IV fluids. Monitor CK levels. 6. Hypoxic respiratory failure. Likely secondary to ARDS. Cannot rule out the possibility of fluid overload and aspiration. Discussed with Dr. Haddad. There is a possibility that patient might need to be intubated if his respiratory status worsens. 7. Metabolic alkalosis. Etiology unknown. Continue to monitor bicarbonate level and chemistries. We will continue to monitor the patient. Condition critical. Continue to watch patient in ICU.
[2016-05-30 05:43] LABS: BE 8.2 mmoll (-3.0-3.0); BLOOD TYPE ARTERIAL; DRAW SITE R RADIAL; METHB 1.1 % (0.0-1.5); O2(CT) 14.9 mL/dL (15.0-23.0); PO2(98.6) 90 mmHg (60-100); SAMPLE BLOOD; SAO2 98.6 % (95.0-100.0); pH(98.6) 7.41 (7.35-7.45)
[2016-05-30 05:45] LABS: ALLEN TEST YES; MODALITY BI PAP; PCO2(98.6) 54 mmHg (35-45)
[2016-05-30 06:11] LABS: BASO% 0.1 % (0.0-0.8); EOS# 0.02 X1000 (0.0-0.7); EOS% 0.3 % (0.0-10.0); HEMATOCRIT 33.5 % (42.0-52.0); HEMOGLOBIN 10.9 g/dL (14.0-18.0); IMM GRAN# 0.02 X1000 (0.0-0.04); IMM GRAN% 0.3 % (0.0-0.5); LYMPH# 0.34 X1000 (1.2-3.4); LYMPH% 4.5 % (20.5-51.1); MANUAL DIFF NEEDED? YES; MCH 31.1 PG (27-31); MCHC 32.5 g/dL (33-37); MCV 95.7 FL (81-99); MONO# 0.51 X1000 (0.11-0.59); MONO% 6.7 % (1.7-9.3); MPV 10.9 FL (7.4-10.4); NEUT% 88.1 % (42.2-75.2); PLT 98 X1000 (130-400)
[2016-05-30 06:25] LABS: ALBUMIN 2.7 g/dL (3.5-5.0); DIRECT BILIRUBIN 0.2 mg/dL (0.00-0.20); TOTAL BILIRUBIN 0.5 mg/dL (0.20-1.00); TOTAL PROTEIN 5.2 g/dL (6.3-8.3)
[2016-05-30] MEDS ORDERED: VANCOMYCIN 1,500 MG in NS 250 ML IV SCH (06:30)
[2016-05-30 07:06] LABS: AGAP 5; BUN 12 mg/dL (8-22); CALCIUM 7.7 mg/dL (8.8-10.2); CHLORIDE 104 mmol/L (98-107); COSMO 281; POTASSIUM 3.7 mmol/L (3.5-5.1); SODIUM 140 mmol/L (136-145); TCO2 31 mmol/L (25-35)
[2016-05-30 07:24] LABS: BANDS 2 % (0-1); LYMPHS 5 % (21-51); MONO 3 % (1-9)
--- NOTE | 2016-05-30 08:01 | Diag Imaging Result Document ---
PROCEDURE NAME: CHEST-PORTABLE - 05/30/2016 AP PORTABLE CHEST, ERECT: TIME: 0550 hours. FINDINGS: There is alveolar opacity throughout both lungs, but particularly in the right middle lobe. The latter has worsened considerably since the previous study of 05/29/2016. IMPRESSION: Pulmonary edema worse than on 05/29/2016. The possibility of right middle lobe pneumonia cannot be excluded.
[2016-05-30] MEDS: VANCOMYCIN 1,500 MG in NS 250 ML IV SCH ×2 (08:59→20:24)
[2016-05-30] MEDS ORDERED: ARIXTRA SUBQ SCH (09:00)
[2016-05-30] MEDS ORDERED: MORPHINE IV ONE (09:32)
[2016-05-30] MEDS: DUONEB (A & A) INH SCH ×3 (10:15→21:30)
[2016-05-30] MEDS ORDERED: QUELICIN IV ONE (10:45)
[2016-05-30] MEDS ORDERED: DIPRIVAN 1% 100 ML IV SCH (10:45)
[2016-05-30] MEDS ORDERED: ATIVAN ONE (11:07)
[2016-05-30] MEDS ORDERED: MORPHINE IV PRN (11:08)
[2016-05-30] MEDS ORDERED: LASIX IV ONE (11:14)
--- NOTE | 2016-05-30 11:53 | PROGRESS NOTE ---
DATE: 05/30/2016 SUBJECTIVE: The patient has no focal complaints. OBJECTIVE: Vital Signs: Blood pressure 142/82, heart rate 110, respiratory rate 34, temperature 98.1 degrees, 96% at present. Cardiovascular: Regular rate and rhythm. Pulmonary: Bilateral breath sounds. Clear to auscultation. GI: Soft, nontender, nondistended. Bowel sounds are positive. LABORATORY DATA: The pH 7.4, pCO2 54, PaO2 90 (that is on 100%). He has been intermittently dropping his saturations into the 80s and 70s. BUN and creatinine 12 and 0.7. Rest of the electrolytes look okay. White count down to 7. Hemoglobin and hematocrit 10 and 33. Platelet count is 98. OBJECTIVE/PLAN: 1. Acute respiratory failure. He is progressing. He is breathing up to 50 times a minute. I am going to go ahead and pursue intubation. His chest x-ray has worsened, and I think in order to stabilize him and especially with his mental status being so low, we will continue to follow very closely. Further management per pulmonary. 2. Multilobar pneumonia. Continue broad-spectrum antibiotics. Pressors as necessary. Blood pressure is stable. 3. Alcohol withdrawal syndrome. He will be on Ativan, propofol, and we will continue to follow very closely. 4. Thrombocytopenia likely related to alcohol abuse. Possible heparin-induced antibody issues. We will analyze that. I have stopped his heparin in favor of Arixtra; we will continue to follow. DISPOSITION: Critical care time greater than 30 minutes due to progressive respiratory failure and intubation. POST INTUBATION NOTE: The patient was sedated and prepped for intubation. Initial pass was possible esophageal intubation. We did not get good color change. On second attempt, we did get good color change, condensation, bilateral breath sounds. Chest x-ray pending. He has an 8 size tube placed.
[2016-05-30] MEDS: NEO-SYNEPHRINE 50 MG in NS 250 ML IV SCH ×2 (12:12→20:22)
[2016-05-30] MEDS: ATIVAN 20 MG in NS 190 ML IV SCH ×2 (12:43→22:51)
[2016-05-30] MEDS: LEVAQUIN 500 MG/D5W 100 ML IV SCH (12:46)
[2016-05-30] MEDS: NS 1,000 ML IV SCH (12:46)
[2016-05-30 12:55] LABS: BE 6.3 mmoll (-3.0-3.0); BLOOD TYPE ARTERIAL; DRAW SITE L RADIAL; METHB 0.9 % (0.0-1.5); O2(CT) 16.7 mL/dL (15.0-23.0); PO2(98.6) 87 mmHg (60-100); SAMPLE BLOOD; SAO2 97.9 % (95.0-100.0); SRATE 16 BPM; THB 12.4 g/dL (11.5-17.4); TVOL 550 mL; pH(98.6) 7.39 (7.35-7.45)
[2016-05-30 12:57] LABS: ALLEN TEST YES; MODALITY VENTILATOR; PCO2(98.6) 54 mmHg (35-45)
--- NOTE | 2016-05-30 13:41 | ECHO REPORT ---
ORDER DATE: 05/29/2016 This is a 2D, M-mode, color Doppler exam. This is a technically satisfactory study. INTERPRETATION: 1. The left ventricle is normal in size without hypertrophy and with preserved overall systolic function. Estimated left ventricular ejection fraction is 70%. No obvious isolated wall- motion abnormalities are noted within the left ventricle. 2. The left and right atria are normal in size. The right ventricle has normal size. Right ventricular function appears to be mildly depressed. This is globally depressed. 3. There is no pericardial effusion. 4. The aortic valve is trileaflet. There is no evidence for aortic stenosis, aortic insufficiency. 5. The mitral valve is intact. The tricuspid valve is intact. 6. There is no significant mitral regurgitation. 7. There is mild tricuspid regurgitation. 8. The peak pulmonary artery pressure is estimated to be around 50 mmHg. 9. No obvious intracardiac masses or thrombi are noted.
[2016-05-30] MEDS ORDERED: CARDIZEM PO SCH (14:00)
[2016-05-30] MEDS: DIPRIVAN 1% 100 ML IV SCH ×3 (14:10→23:54)
--- NOTE | 2016-05-30 14:44 | Diag Imaging Result Document ---
PROCEDURE NAME: CHEST-PORTABLE - 05/30/2016 AP SEMIERECT CHEST: TIME: 1130 hours. FINDINGS: There is an endotracheal tube with its tip approximately 2 cm above the az and an NG tube coiled in the fundus of the stomach. There continues to be alveolar opacity throughout both lungs but particularly in the right middle lobe. This has not changed since the previous study of 0550 hours. IMPRESSION: Pulmonary edema +/- pneumonia.
[2016-05-30 14:57] LABS: OCCULT BLOOD 1 POSITIVE (NEGATIVE)
[2016-05-30 14:58] LABS: C DIFF ANTIGEN PL NEGATIVE (NEGATIVE); C DIFF TOXIN PL NEGATIVE (NEGATIVE)
[2016-05-30] MEDS ORDERED: OFIRMEV 1000 MG/ISOTONIC SOLN 100 ML IV ONE (15:29)
[2016-05-30] MEDS: SODIUM CHLORIDE 0.9% INJ SCH (16:45)
[2016-05-30] MEDS: PROTONIX IV SCH (16:45)
[2016-05-31] MEDS: ZOSYN 4.5 GM/NS 100 ML IV SCH ×4 (02:14→21:08)
[2016-05-31] MEDS: DUONEB (A & A) INH SCH ×5 (03:00→22:10)
[2016-05-31] MEDS: DIPRIVAN 1% 100 ML IV SCH ×4 (04:03→21:09)
[2016-05-31 04:28] LABS: BE 9.3 mmoll (-3.0-3.0); BLOOD TYPE ARTERIAL; DRAW SITE L RADIAL; METHB 1.1 % (0.0-1.5); O2(CT) 14.8 mL/dL (15.0-23.0); PCO2(98.6) 47 mmHg (35-45); PO2(98.6) 99 mmHg (60-100); SAMPLE BLOOD; SAO2 98.6 % (95.0-100.0); SRATE 16 BPM; THB 10.9 g/dL (11.5-17.4); TVOL 550 mL; pH(98.6) 7.47 (7.35-7.45)
[2016-05-31 04:32] LABS: ALLEN TEST YES; MODALITY VENTILATOR
[2016-05-31] MEDS ORDERED: ATIVAN 20 MG in NS 190 ML IV PRN (06:31)
[2016-05-31] MEDS: NS 1,000 ML IV SCH ×3 (07:32→19:06)
[2016-05-31 08:23] LABS: MANUAL DIFF NEEDED? NO
[2016-05-31 08:24] LABS: BASO% 0.1 % (0.0-0.8); EOS# 0.07 X1000 (0.0-0.7); HEMATOCRIT 31.1 % (42.0-52.0); HEMOGLOBIN 10.1 g/dL (14.0-18.0); IMM GRAN# 0.01 X1000 (0.0-0.04); IMM GRAN% 0.1 % (0.0-0.5); LYMPH# 0.84 X1000 (1.2-3.4); LYMPH% 11.6 % (20.5-51.1); MCH 31.6 PG (27-31); MCHC 32.5 g/dL (33-37); MCV 97.2 FL (81-99); MONO# 0.52 X1000 (0.11-0.59); MONO% 7.2 % (1.7-9.3); MPV 9.6 FL (7.4-10.4); PLT 109 X1000 (130-400)
[2016-05-31 08:44] LABS: AGAP 7; BUN 20 mg/dL (8-22); CHLORIDE 106 mmol/L (98-107); COSMO 290; POTASSIUM 3.2 mmol/L (3.5-5.1); SODIUM 144 mmol/L (136-145); TCO2 31 mmol/L (25-35)
--- NOTE | 2016-05-31 09:32 | Diag Imaging Result Document ---
PROCEDURE NAME: CHEST-PORTABLE - 05/31/2016 AP PORTABLE CHEST AT 0524 HOURS: FINDINGS: There is an NG tube with its tip coiled in the stomach and an endotracheal tube with its tip approximately 2 cm above the az. There is some improvement in both the diffuse interstitial pulmonary edema and the dense alveolar opacification of the right middle lobe. IMPRESSION: Improving pulmonary edema plus/minus pneumonia.
[2016-05-31] MEDS: LEVAQUIN 500 MG/D5W 100 ML IV SCH (12:04)
[2016-05-31] MEDS ORDERED: LASIX IV ONE (12:35)
[2016-05-31] MEDS: POTASSIUM CHLORIDE 20 MEQ/SWI 100 ML IV SCH ×2 (12:55→16:27)
[2016-05-31] MEDS: VANCOMYCIN 1,400 MG in NS 250 ML IV SCH (13:05)
--- NOTE | 2016-05-31 13:55 | PROGRESS NOTE ---
DATE: 05/31/2016 SUBJECTIVE: The patient has no complaints. He is intubated, sedated. OBJECTIVE: Blood pressure 108/77, heart rate of 92, respiratory rate is 16, temperature 99.6, 97% sat on 45%. He has not had a temperature since yesterday and it was just 100.3 then. Cardiovascular: Regular rate and rhythm. Pulmonary: Diminished breath sounds right base, no rales. GI: Abdomen was soft, nontender, nondistended. Bowel sounds were positive. Extremities: No clubbing or cyanosis. LABORATORY DATA: White count is normal at 7, hemoglobin and hematocrit are 10 and 31, platelets stable at 109. Potassium 3.2, BUN and creatinine of 20 and 0.8. Chest x-ray shows improving interstitial infiltrates, still fairly dense right lower lobe pneumonia. PROBLEM LIST: 1. Acute respiratory failure secondary to pneumonia, presumed aspiration type. He is on vancomycin, Zosyn, which is day 3 of both of those, and Levaquin probably day 4. He is off pressors. We are weaning his ventilator. He is down to 45% and seems to be stable from that standpoint. 2. Shock. This has resolved. He is off pressors. Continue gentle hydration, but I think I am going to diurese him a little bit because he has been positive for several days, 1.5 yesterday, 2.8 the day before, so I am going to work on trying to diurese him. 3. Heme positive stools with a stable hemoglobin and hematocrit. They are not grossly bloody. I am going to hold anticoagulation and put him on SCDs and we will monitor. He is not stable right now for any kind of endoscopy in any case. We will continue to follow.
[2016-05-31] MEDS: SODIUM CHLORIDE 0.9% INJ SCH (19:09)
[2016-05-31] MEDS: PROTONIX IV SCH (19:09)
[2016-05-31 19:29] LABS: AGAP 9; BUN 20 mg/dL (8-22); CHLORIDE 101 mmol/L (98-107); COSMO 286; GOT 28 U/L (10-34); MAGNESIUM 1.6 mg/dL (1.5-2.7); POTASSIUM 3.1 mmol/L (3.5-5.1); SODIUM 142 mmol/L (136-145); TCO2 32 mmol/L (25-35); TRIGLYCERIDES 118 mg/dL (39-160)
[2016-06-01] MEDS: ZOSYN 4.5 GM/NS 100 ML IV SCH ×4 (02:00→20:43)
[2016-06-01] MEDS: NS 1,000 ML IV SCH (03:00)
[2016-06-01] MEDS: DUONEB (A & A) INH SCH ×4 (03:00→22:00)
--- NOTE | 2016-06-01 03:36 | PROGRESS NOTE ---
DATE: 05/31/2016 SUBJECTIVE: Patient seen and examined. He is intubated and sedated, currently on 45% FiO2 on assist control. No acute events overnight. Waking up intermittently on sedation. PHYSICAL EXAMINATION: Vital Signs: Blood pressure 108/77, heart rate is 90s to 80s, respiratory rate is 16, temperature 99 degrees, oxygen saturation is 45% on assist control. General: Intubated and sedated. Cardiac: Regular rate and rhythm. Lungs: Decreased air entry on the right side. No wheezing heard. Abdomen: Soft. Extremities: No edema. VOLUNTEER RECRUITER: Withdraws to painful stimulus. LABS: White count 7000, hemoglobin 10, hematocrit 31, platelets 109,000. Potassium 3.2, BUN 20, creatinine 0.8. Chest x-ray shows dense infiltrate on the right lower lobe with improving interstitial infiltrates. ASSESSMENT AND PLAN: 1. Acute respiratory distress syndrome secondary to pneumonia and possible aspiration. 2. Hypoxic respiratory failure. 3. Anemia. 4. History of alcohol abuse. PLAN: 1. Recommend continued ventilator support. We will repeat ABG in the morning and try to wean patient off of ventilator. Continue sedation for now along with broad- spectrum antibiotics for treatment of underlying pneumonia. Monitor renal function. Maintain MAP of around 65. 2. Hypoxic respiratory failure secondary to pneumonia and aspiration. Continue oxygen through ventilator. Goal PO2 is 65-80. 3. For anemia, patient started on Protonix, likely secondary to GI bleed. 4. For nutrition, started patient on Jevity and consult dietary to change it as per patient's requirements. Continue to monitor patient in ICU. 5. Condition critical. [facility]ST[facility]STERHailee
[2016-06-01 04:35] LABS: BE 9.1 mmoll (-3.0-3.0); BLOOD TYPE ARTERIAL; DRAW SITE L RADIAL; METHB 1.1 % (0.0-1.5); O2(CT) 16.4 mL/dL (15.0-23.0); PCO2(98.6) 44 mmHg (35-45); PO2(98.6) 110 mmHg (60-100); SAMPLE BLOOD; SAO2 98.7 % (95.0-100.0); SRATE 14 BPM; TVOL 550 mL; pH(98.6) 7.49 (7.35-7.45)
[2016-06-01 06:15] LABS: ALLEN TEST YES; MODALITY VENTILATOR
[2016-06-01 06:40] LABS: HEMATOCRIT 31.6 % (42.0-52.0); HEMOGLOBIN 10.2 g/dL (14.0-18.0); MCHC 32.3 g/dL (33-37); MPV 10.1 FL (7.4-10.4); RBC 3.29 XMIL (4.7-6.1)
[2016-06-01 07:09] LABS: AGAP 11; BUN 25 mg/dL (8-22); CALCIUM 8.1 mg/dL (8.8-10.2); CHLORIDE 103 mmol/L (98-107); COSMO 294; POTASSIUM 3.1 mmol/L (3.5-5.1); SODIUM 145 mmol/L (136-145); TCO2 32 mmol/L (25-35)
--- NOTE | 2016-06-01 07:24 | Diag Imaging Result Document ---
PROCEDURE NAME: CHEST-PORTABLE - 06/01/2016 AP PORTABLE CHEST ERECT AT 0521 HOURS: FINDINGS: There is an NG tube coiled in the fundus of the stomach and an endotracheal tube which appears to pass just below the thoracic inlet. Compared to 05/31/2016, there has been some clearing of the opacity in the right middle lobe. Otherwise, there has been no significant change. IMPRESSION: Interstitial pulmonary edema. Improving right middle lobe pneumonia.
[2016-06-01] MEDS: VANCOMYCIN 1,400 MG in NS 250 ML IV SCH ×3 (07:54→20:44)
[2016-06-01] MEDS: DIPRIVAN 1% 100 ML IV SCH ×2 (09:31→22:30)
[2016-06-01] MEDS ORDERED: POTASSIUM CHLORIDE 20% LIQUID GT ONE (10:12)
[2016-06-01] MEDS: POTASSIUM CHLORIDE 20 MEQ/SWI 100 ML IV SCH ×2 (10:31→12:38)
[2016-06-01] MEDS: LASIX IV SCH ×2 (10:31→18:48)
--- NOTE | 2016-06-01 10:36 | PROGRESS NOTE ---
DATE: 06/01/2016 SUBJECTIVE: Patient intubated and sedated. OBJECTIVE: Vital Signs: Blood pressure 174/88, heart rate of 72, respiratory rate 22, temperature 99 degrees, 99% on 40%. Cardiovascular: Regular rate and rhythm. Pulmonary: Bilateral breath sounds. Clear to auscultation. Gastrointestinal: Abdomen soft, nontender, nondistended. Bowel sounds are positive. LABORATORY DATA: White count 3.1, creatinine stable, hemoglobin and hematocrit 10 and 30. Ins and outs are 2657 in and 3250 out. ASSESSMENT/PLAN: 1. Respiratory failure secondary to pneumonia possible aspiration type. He is on vancomycin, Levaquin and Zosyn. He is doing well. Blood gases today looked good. If anything, he is a alkalotic. PaO2 is up to 110, that is on FiO2 of 40%. I think we could commence weaning. Pulmonary is following. I am going to continue diuresis on him. 2. Chronic pain disorder. Continue medications. 3. Alcohol abuse. He is on p.r.n. medications for that. DISPOSITION: We will continue to follow very closely.
[2016-06-01 11:52] LABS: BE 11.3 mmoll (-3.0-3.0); BLOOD TYPE ARTERIAL; DRAW SITE R RADIAL; METHB 1.1 % (0.0-1.5); O2(CT) 15.7 mL/dL (15.0-23.0); PCO2(98.6) 42 mmHg (35-45); PO2(98.6) 88 mmHg (60-100); SAMPLE BLOOD; SAO2 98.4 % (95.0-100.0); THB 11.6 g/dL (11.5-17.4); pH(98.6) 7.53 (7.35-7.45)
[2016-06-01 12:02] LABS: ALLEN TEST YES; MODALITY VENTILATOR
[2016-06-01 12:33] LABS: PREALBUMIN 6.2 mg/dL (20-40)
[2016-06-01] MEDS: LEVAQUIN 500 MG/D5W 100 ML IV SCH (15:05)
[2016-06-01] MEDS: ATIVAN IV PRN (18:18)
[2016-06-01] MEDS: SODIUM CHLORIDE 0.9% INJ SCH (18:48)
[2016-06-01] MEDS: PROTONIX IV SCH (18:48)
--- NOTE | 2016-06-01 20:30 | PROGRESS NOTE ---
DATE: 06/01/2016 SUBJECTIVE: The patient seen and examined this afternoon off of a propofol drip barely waking up, makes eye contact but does not follow any commands. Attempts to speak intubated on vent on 40% FiO2 saturating 99% on CPAP with pressure support of 10. No fevers noted. No agitation noted. OBJECTIVE: Vitals: Appear to be stable, heart rate 72, respiratory rate is 22, temperature 99. Cardiac: Regular rate and rhythm. Lungs: Decreased air entry bilaterally. No wheezing or crackles heard. Gastrointestinal: Soft, bowel sounds present. Extremities: No edema. DATA: White count is 5.3, hemoglobin 10.2, hematocrit 31.6. Blood gas pH is 7.53, pCO2 is 42, PO2 88. Chemistry. Sodium 145, potassium 3.1, chloride 103, CO2 32, BUN 25, creatinine 0.9. Microbiology, sputum cultures and blood cultures have been negative. DuoNeb, Lasix, Haldol, Levaquin, Ativan, vancomycin, Zosyn, Propofol. Chest x-ray this morning showed interstitial pulmonary edema, improving right middle lobe pneumonia. ASSESSMENT AND PLAN: 1. Acute respiratory failure secondary to pneumonia and possible aspiration. 2. Bilateral pneumonia. 3. Alcohol abuse with withdrawal. PLAN: Patient is off sedation and is tolerating CPAP although his mental status is not ideal for extubation. Continue CPAP until this patient has respiratory distress. Will place patient on AC mode tonight and reattempt CPAP trial in the morning. Will plan to keep him off of sedation if possible for possible extubation in the morning. X-ray reveals improvement in pneumonia. Patient has white count has normalized and hypoxia has improved. Continue nebulization treatments. Continue monitoring patient in ICU until extubation. Plan discussed with patient's family, his daughter at the bedside as well as Dr. Haddad.
[2016-06-01] MEDS: MORPHINE IV PRN (23:44)
[2016-06-02] MEDS: ZOSYN 4.5 GM/NS 100 ML IV SCH ×4 (01:54→20:34)
[2016-06-02] MEDS: DIPRIVAN 1% 100 ML IV SCH (02:10)
[2016-06-02] MEDS: DUONEB (A & A) INH SCH ×4 (03:59→22:00)
[2016-06-02] MEDS: LASIX IV SCH ×2 (05:11→17:24)
[2016-06-02 05:49] LABS: BE 12.4 mmoll (-3.0-3.0); BLOOD TYPE ARTERIAL; DRAW SITE L RADIAL; METHB 1.1 % (0.0-1.5); O2(CT) 11.5 mL/dL (15.0-23.0); PCO2(98.6) 46 mmHg (35-45); PO2(98.6) 96 mmHg (60-100); SAMPLE BLOOD; SAO2 98.2 % (95.0-100.0); SRATE 14 BPM; THB 8.4 g/dL (11.5-17.4); TVOL 550 mL; pH(98.6) 7.51 (7.35-7.45)
[2016-06-02 05:57] LABS: ALLEN TEST YES; MODALITY BI PAP
[2016-06-02 07:21] LABS: HEMOGLOBIN 11.3 g/dL (14.0-18.0); MCH 31.1 PG (27-31); MCHC 32.3 g/dL (33-37); MCV 96.4 FL (81-99); MPV 9.7 FL (7.4-10.4); RBC 3.63 XMIL (4.7-6.1)
--- NOTE | 2016-06-02 08:13 | Diag Imaging Result Document ---
PROCEDURE NAME: CHEST-PORTABLE - 06/02/2016 PORTABLE CHEST: COMPARISON: 06/01/2014. FINDINGS: Endotracheal tube is again seen with the tip approximately 2 cm above the az. Nasogastric tube is again seen with its distal end at the fundus of the stomach. Heart size is normal. There has been mild decrease in interstitial opacities. There are no other interval changes identified. There is no pneumothorax seen. IMPRESSION: Mild decrease in interstitial opacities.
[2016-06-02] MEDS: VANCOMYCIN 1,400 MG in NS 250 ML IV SCH ×2 (08:25→21:08)
[2016-06-02 11:19] LABS: BE 11.8 mmoll (-3.0-3.0); BLOOD TYPE ARTERIAL; DRAW SITE R RADIAL; METHB 0.9 % (0.0-1.5); O2(CT) 18.8 mL/dL (15.0-23.0); PCO2(98.6) 47 mmHg (35-45); PO2(98.6) 100 mmHg (60-100); SAMPLE BLOOD; SAO2 98.3 % (95.0-100.0); THB 13.9 g/dL (11.5-17.4)
[2016-06-02 11:32] LABS: ALLEN TEST YES; MODALITY VENTILATOR
[2016-06-02] MEDS: LEVAQUIN 500 MG/D5W 100 ML IV SCH (12:36)
[2016-06-02] MEDS: POTASSIUM CHLORIDE 20 MEQ/SWI 100 ML IV SCH ×4 (12:39→22:55)
--- NOTE | 2016-06-02 12:59 | PROGRESS NOTE ---
DATE: 06/02/2016 SUBJECTIVE: The patient has no focal complaints. OBJECTIVE: Vital Signs: Blood pressure 172/82. Heart rate 62. Respiratory rate 17. Temperature 99.3 degrees. Cardiovascular: Regular rate and rhythm. Pulmonary: Bilateral breath sounds. Clear to auscultation. GI: Soft. Nontender, nondistended. Bowel sounds are positive. Extremities: No clubbing or cyanosis. Lymphatics: No peripheral edema. Neurological: Exam was nonfocal. LABORATORY DATA: White count normal. Hemoglobin and hematocrit 11 and 35. Platelets of 155,000. Chemistries: Potassium is still low at 3.1. Chest x-ray today shows mild decrease in interstitial opacities. Blood gas looks good: pH 7.5, pCO2 of 47, PaO2 of 100 on 40%. PROBLEM LIST: 1. Acute respiratory failure secondary to pneumonia. Clinically, he is improving. He is on Levaquin, Zosyn, and vancomycin. Levaquin day 6. Day 5, Zosyn. I think he has been on vancomycin for about 48 hours. 2. Hypokalemia. We will supplement and follow. We will advance diet. 3. Alcohol abuse. He seems to be stable. I am going to try to hold as much sedation as possible. He does have p.r.n. Haldol and Ativan and we will continue to follow. 4. Thrombocytopenia. This is also improved. 5. We will start on liquid diet and continue to follow very closely. 6. I am going to continue diuresis today and repeat his chest x-ray tomorrow.
[2016-06-02] MEDS: SODIUM CHLORIDE 0.9% INJ SCH (17:23)
[2016-06-02] MEDS: PROTONIX IV SCH (17:24)
[2016-06-02] MEDS: ATIVAN IV PRN ×2 (17:25→18:05)
[2016-06-02] MEDS: MORPHINE IV PRN ×2 (18:05→23:06)
--- NOTE | 2016-06-02 23:38 | PROGRESS NOTE ---
DATE: 06/02/2016 SUBJECTIVE: Patient seen and examined this afternoon. No acute events overnight. Intubated on CPAP trials. Awake and following commands. OBJECTIVE: vital signs: Blood pressure 172/82, heart rate 62, respiratory rate 17, temperature 99. Cardiac: Regular rate and rhythm. Lungs: Decreased air entry at the bases, but clear overall. ELECTRIC CRANE OPERATOR: Following simple commands. LABS: White count within normal limits. Electrolytes normal, except for potassium. Chest x-ray showed improvement in the opacities. ABG showed pH of 7.5, pCO2 of 47, PO2 of 100 on 40% FiO2 with CPAP of 5 and pressure support of 10. ASSESSMENT AND PLAN: 1. Acute respiratory failure, secondary to pneumonia. 2. Bilateral pneumonia. 3. History of alcohol abuse and withdrawal. PLAN: Today the patient was attempted CPAP trial. Repeat ABG appeared to be within normal limits, and the patient was extubated to nasal cannula. For treatment of pneumonia, continue antibiotics. We will plan to deescalate antibiotics if patient's cultures remain negative. Continue oxygen to keep saturation over 88 to 90%. Continue aspiration precautions, and advance diet as tolerated.
[2016-06-03] MEDS: ZOSYN 4.5 GM/NS 100 ML IV SCH ×4 (02:26→20:40)
[2016-06-03] MEDS: DUONEB (A & A) INH SCH ×4 (03:21→21:42)
[2016-06-03] MEDS: LASIX IV SCH ×2 (05:34→17:32)
--- NOTE | 2016-06-03 08:19 | Diag Imaging Result Document ---
PROCEDURE NAME: CHEST-PORTABLE - 06/03/2016 CHEST, SINGLE VIEW: INDICATION: Dyspnea. COMPARISON: 06/02/2016. FINDINGS: The endotracheal tube and nasogastric tube have been removed. The heart size is within normal limits. Lung volumes are slightly reduced. Bilateral interstitial infiltrates are essentially unchanged except within the right upper lobe where markings are increased. IMPRESSION: Increase in right upper lobe markings likely related to atelectasis and interval decrease in lung volumes. Otherwise, unchanged bilateral interstitial infiltrates.
[2016-06-03 09:20] LABS: HEMATOCRIT 37.6 % (42.0-52.0); HEMOGLOBIN 12.6 g/dL (14.0-18.0); MCH 31.7 PG (27-31); MCHC 33.5 g/dL (33-37); MCV 94.5 FL (81-99); MPV 9.6 FL (7.4-10.4); RBC 3.98 XMIL (4.7-6.1)
[2016-06-03] MEDS: VANCOMYCIN 1,200 MG in NS 250 ML IV SCH ×2 (09:55→22:08)
[2016-06-03] MEDS: LEVAQUIN 500 MG/D5W 100 ML IV SCH (12:45)
--- NOTE | 2016-06-03 12:50 | VASCULAR LAB ---
DATE: 05/30/2016 PROCEDURE: Lower extremity arterial study at rest. INTERPRETING PHYSICIAN: Warner Avelar MD. INDICATION: The patient has discoloration of the legs. FINDINGS: Brachial pressure on the right is 87, on the left 96. On the right, high thigh pressure 95, right low thigh pressure 87, right dorsalis pedis 90, right posterior tibial 79, right AB index 0.94, right great toe pressure 79, right toe-brachial index 0.82. On the left, the low thigh pressure is 120, left calf 117, left dorsalis pedis 117, left posterior tibial 110, left AB index 1.2, left great toe pressure 95, left toe-brachial index 0.99. There are some mild diminished PVRs on the right. INTERPRETATION: Probable right superficial femoral stenosis. This flow should be adequate perfusion. There should not be any evidence of mottling, should heal any wounds in the lower extremities.
[2016-06-03] MEDS: PROTONIX IV SCH (17:32)
--- NOTE | 2016-06-03 20:57 | PROGRESS NOTE ---
DATE: 06/03/2016 SUBJECTIVE: The patient is status post extubation yesterday and no acute events overnight. More awake, oriented. No history of fevers or agitation or obvious seizures. OBJECTIVE: Vital signs: Blood pressure is 170/87, respiratory rate is 15, pulse is 65, temperature 98 degrees, oxygen saturation is 97% on 5 L. General: Not in significant distress. Appears lethargic. Heart: S1-S2 heard. Lungs: Decreased air entry with crackles at the bases. Abdomen: Soft. BATCH TESTER: Awake. Answers simple questions. LABORATORY: White count is 6.9, hemoglobin is 12.6, hematocrit 37. No new blood gases. Chemistry: None available today. Microbiology: Cultures have been negative so far. MEDICATIONS: DuoNeb q.2 hours and q.6 hours. Lasix 40 mg. Haldol IV q.4, Levaquin q.24 hours, Ativan, morphine p.r.n. ASSESSMENT: 1. Bilateral pneumonia. 2. Hypoxic respiratory failure. 3. Alcohol abuse. PLAN: Patient has been stable respiratory aguilar after extubation. Continue supportive care along with antibiotics. Patient is advanced on diet. Continue to monitor respiratory status in the ICU overnight. Possible transfer to the floor in the morning. Patient will need physical therapy evaluation and possible discharge to rehab when medically stable. [facility]
--- NOTE | 2016-06-03 22:01 | PROGRESS NOTE ---
DATE: 06/03/2016 SUBJECTIVE: The patient is somewhat confused this morning. He does not answer questions. He was extubated yesterday. OBJECTIVE: Vital Signs: Reviewed. BP 170/87, pulse 85, respiratory 15. General: Patient is a well-developed, lethargic appearing, white male, who does awaken and respond to questions but does not follow commands. He is not sure where he is this morning. He does verbalize complaints. HEENT: Normocephalic. Neck: Supple. Cardiovascular: Regular rate. Chest: Relatively clear. Decreased breath sounds bilaterally. Abdomen: Soft, nondistended. Extremities: Moves all extremities. LABS: Reviewed. ASSESSMENT: 1. Bilateral pneumonia. 2. Hypoxic respiratory failure, improved. He is off mechanical ventilation. 3. Chronic alcohol abuse. 4. Hypokalemia, resolved. 5. Thrombocytopenia, improved. PLAN: We will continue to follow patient in ICU today. If he is more awake, alert, we will transfer him to the floor when a bed is available. We will continue to follow. Further orders to follow.
[2016-06-04] MEDS: ZOSYN 4.5 GM/NS 100 ML IV SCH ×4 (02:15→19:54)
[2016-06-04] MEDS: MORPHINE IV PRN (02:16)
[2016-06-04] MEDS: DUONEB (A & A) INH SCH ×4 (04:45→22:41)
[2016-06-04] MEDS: LASIX IV SCH ×2 (05:21→17:11)
--- NOTE | 2016-06-04 09:28 | PROGRESS NOTE ---
DATE: 06/04/2016 SUBJECTIVE: The patient states that he is feeling much better. He is much more awake and alert this morning. He is having no real complaints. OBJECTIVE: Vital Signs: Reviewed. General: He is well developed, well nourished. He is alert and oriented. Neck: Supple. CV: Regular rate. Chest: Relatively clear. Abdomen: Soft, nondistended. Extremities: Moves all extremities. Neurologic: No focal changes. ASSESSMENT: 1. Acute respiratory failure secondary to pneumonia, improved. 2. Pneumonia, improved. 3. Hypokalemia, improved. 4. Chronic alcohol abuse. PLAN: We will move the patient out of the ICU today to the floor. We will continue him on his home medications as well as his IV antibiotics. We will get physical therapy involved. Further orders as needed.
[2016-06-04] MEDS: VANCOMYCIN 1,200 MG in NS 250 ML IV SCH (09:42)
[2016-06-04] MEDS ORDERED: NS 250 ML ONE (13:53)
[2016-06-04] MEDS: LEVAQUIN 500 MG/D5W 100 ML IV SCH (13:55)
[2016-06-04] MEDS: PRILOSEC PO SCH (17:10)
[2016-06-04] MEDS: LEVAQUIN PO SCH (17:10)
[2016-06-04] MEDS ORDERED: NS 500 ML IV SCH (19:15)
[2016-06-04] MEDS ORDERED: VANCOMYCIN 1,400 MG in NS 250 ML IV SCH ×4 (22:00)
[2016-06-05] MEDS: ZOSYN 4.5 GM/NS 100 ML IV SCH ×4 (02:33→19:49)
[2016-06-05] MEDS: TYLENOL LIQUID GT PRN ×2 (02:34→16:43)
[2016-06-05] MEDS: DUONEB (A & A) INH SCH ×4 (03:41→22:27)
[2016-06-05] MEDS: LASIX IV SCH (05:17)
[2016-06-05] MEDS ORDERED: KLOR-CON PO ONE (07:32)
--- NOTE | 2016-06-05 11:33 | PROGRESS NOTE ---
DATE: 06/05/2016 SUBJECTIVE: The patient states he is feeling tremendously better this morning. He is having no complaints. Denies any diarrhea, constipation. Denies any melena. Denies fevers or chills. States his breathing is much better. He is asking to have his Cristina removed and would like to have a regular diet. PHYSICAL EXAMINATION: Vital signs: Temperature 98 degrees. Pulse 87. Respiratory 18. BP 142/65. General: Patient is well developed, well nourished and, currently, in no respiratory distress. He is awake, alert, oriented. Neck: Supple. CV: Regular rate. Chest: Relatively clear. Good air movement bilateral. Abdomen: Soft, nondistended. Extremities: Moves all extremities. Neurologic: No focal changes. Skin: Warm and dry. No rashes. DIAGNOSTIC DATA: Pending. ASSESSMENT: 1. Acute respiratory failure, improving. 2. Pneumonia, improving. We will continue to try to change to p.o. antibiotics given his improved lung function. 3. Hypokalemia, appears resolved, will recheck. 4. Chronic alcohol abuse. 5. Chronic tobacco abuse. Again, discussed with patient the perils of smoking and drinking. 6. Hypertension. Blood pressure is 142/65, stable. PLAN: We will advance diet. We will attempt to bladder train and hopefully remove his Cristina. We will get physical therapy involved. Will stop his vancomycin at this point. We will change his Lasix to p.o. today. Further orders as needed. Hopefully home in 2-3 days.
[2016-06-05] MEDS: PRILOSEC PO SCH (16:44)
[2016-06-05] MEDS: LEVAQUIN PO SCH (17:39)
[2016-06-05] MEDS: LASIX PO SCH (17:39)
[2016-06-05 20:39] LABS: AGAP 12; BUN 28 mg/dL (8-22); CALCIUM 8.4 mg/dL (8.8-10.2); CHLORIDE 99 mmol/L (98-107); COSMO 287; MAGNESIUM 1.9 mg/dL (1.5-2.7); POTASSIUM 2.7 mmol/L (3.5-5.1); SODIUM 140 mmol/L (136-145); TCO2 29 mmol/L (25-35)
[2016-06-06] MEDS: ZOSYN 4.5 GM/NS 100 ML IV SCH ×2 (02:14→09:33)
[2016-06-06] MEDS: DUONEB (A & A) INH SCH ×2 (03:39→11:56)
[2016-06-06 06:08] LABS: HEMOGLOBIN 14.2 g/dL (14.0-18.0); MCH 31.2 PG (27-31); MCHC 33.8 g/dL (33-37); MCV 92.3 FL (81-99); MPV 10.2 FL (7.4-10.4); RBC 4.55 XMIL (4.7-6.1)
[2016-06-06] MEDS: LASIX PO SCH (06:17)
[2016-06-06 06:29] LABS: AGAP 11; ALBUMIN 3.5 g/dL (3.5-5.0); ALKALINE PHOSPHATASE 68 U/L (32-122); BUN 22 mg/dL (8-22); CALCIUM 8.7 mg/dL (8.8-10.2); CHLORIDE 97 mmol/L (98-107); COSMO 284; GOT 21 U/L (10-34); GPT 21 U/L (10-44); MAGNESIUM 1.9 mg/dL (1.5-2.7); POTASSIUM 2.8 mmol/L (3.5-5.1); SODIUM 140 mmol/L (136-145); TCO2 32 mmol/L (25-35); TOTAL PROTEIN 6.4 g/dL (6.3-8.3)
--- NOTE | 2016-06-06 06:44 | PROGRESS NOTE ---
DATE: 06/05/2016 SUBJECTIVE: Patient seen and examined in the evening of 06/05/2016. No acute events overnight. Shortness of breath and weakness have been improving every day. Currently requiring 2 L of oxygen. PHYSICAL EXAMINATION: Vital Signs: Temperature 98 degrees. Pulse 87. Respiratory rate 18. Blood pressure 142/65. General: Not in significant distress. Heart: S1-S2 heard. Lungs: Clear bilaterally. Abdomen: Soft. LABORATORY DATA: No new labs noted. Sodium 140. Potassium 2.7. Chloride 99. BUN is 28. Creatinine 1.1. ASSESSMENT AND PLAN: 1. Bilateral pneumonia. 2. Hypoxic respiratory failure. 3. Hypokalemia. 4. History of alcohol abuse. 5. Tobacco dependency. 6. Hypoxia. PLAN: Patient's respiratory status continues to improve, still requiring 2 L of oxygen. Wean off as tolerated. Recommend physical therapy or home with home health aide. Agree with stopping vancomycin. Supplement potassium. Educated patient about smoking cessation. [facility]
[2016-06-06] MEDS ORDERED: KLOR-CON PO ONE (09:48)
[2016-06-06 11:51] VITALS: BP 115/54
[2016-06-06] MEDS ORDERED: KLOR-CON PO SCH (21:00)
--- NOTE | 2016-06-06 23:55 | DISCHARGE SUMMARY ---
ADMISSION DATE: 05/28/2016 DISCHARGE DATE: 06/06/2016 PRIMARY CARE PHYSICIAN: Dr. Jalil Raymundo. ADMISSION DIAGNOSES: 1. Multilobar pneumonia. 2. Septic shock. 3. Acute kidney injury with the setting of rhabdomyolysis. DISCHARGE DIAGNOSES: 1. Multilobar pneumonia improved. 2. Acute respiratory failure resolved. 3. Hypokalemia. 4. Chronic alcohol abuse. 5. Chronic tobacco abuse. 6. Hypertension. SUMMARY OF FINDINGS: This is a 65-year-old male who presented to the emergency room with complaints of increased weakness, pain, had fallen 3 times on the night prior to arriving, productive cough, shortness of breath. In the ER he was found to have rhabdomyolysis with some hypotension, acute kidney injury. Apparently had been here in February for a TIA. Had bilateral infiltrates consistent with pneumonia with developing ARDS and was in shock presumably septic from the pneumonia. He was initially admitted to the intensive care unit, placed on vancomycin, Levaquin and Zosyn, breathing treatments. Pulmonology was consulted. He was initially placed on Miki-Synephrine for blood pressure support. That was weaned. He had an echocardiogram on 05/29/2016 that showed an ejection fraction of 70% with preserved overall systolic function. He continued to improve. He was transferred out of the unit on 06/04/2016. He has been up walking in the hallway. His O2 saturation this morning without any oxygen on room air was 98%. We have discussed with this patient in great length with each visit the importance of alcohol cessation and tobacco cessation. He verbalizes understanding. Family at bedside verbalizes understanding also. He was seen by pulmonology last night who felt that he is ready for discharge home. He has been afebrile for greater than 24 hours. He is noted to have a dip in his potassium down to 2.8 today. This is most likely because he has been receiving Lasix IV. We will supplement him with 60 mEq p.o. today and then he will be sent home with prescriptions as follows. Lasix 40 mg p.o. daily #30 with 2 refills, potassium chloride 40 mEq p.o. daily #30 with 2 refills and Levaquin 500 mg p.o. daily for 5 days. He will continue his other home medications of atorvastatin 20 mg p.o. at bedtime, aspirin 81 mg p.o. daily, Cilostazol 100 mg p.o. b.i.d., Celexa 20 mg p.o. daily, citalopram, diclofenac 75 mg p.o. b.i.d., Vistaril 25 mg p.o. at bedtime, lisinopril 10 mg p.o. daily, 0.4 mg per instructions, OxyContin 30 mg p.o. daily and Roxicodone 30 mg p.o. t.i.d. FOLLOWUP: He will follow with his primary care physician in 1-2 weeks. All discharge instructions were reviewed with the patient and his family member. They verbalized understanding. A 35-minute discharge. Dictated by ARI Haley for Taz Haddad MD [facility]
--- NOTE | 2016-06-07 05:55 | PROGRESS NOTE ---
DATE: 06/06/2016 SUBJECTIVE: Patient seen and examined in the morning of 06/06/2016. No acute events overnight. Shortness of breath and wheezing are back to baseline. Patient is planning to go home. PHYSICAL EXAMINATION: Vital Signs: Stable. Heart: S1-S2 heard. Lungs: Clear bilaterally. Abdomen: Soft. LABS: The white count is 11,000, hemoglobin is 14.2. Chemistry: Sodium 148, potassium 2.8, chloride 97, BUN 22, creatinine 8. ASSESSMENT: 1. Bilateral pneumonia. 2. Hypoxic respiratory failure. 3. History of tobacco use and possible chronic obstructive pulmonary disease. 4. COPD 5. Alcohol abuse. PLAN: Patient clinically appears stable. Correction of low potassium as per primary care team prior to discharge. Continue bronchodilators. Advised patient to follow up with me in my office in 2 weeks to assess and manage COPD. [facility]
== END 2016-06-06 12:47 | disposition home health service (06) | DRG 871 ==
LOC: P.ED 12:03 → P.EDIPHOLD 14:20 → OBSVTOIN 14:20 → P.ICU 17:08 → P.MEDSURG 06-04 11:08
PROVIDERS: ATTEND Internal Medicine
PROC: 5A1945Z Respiratory Ventilation, 24-96 Consecutive Hours (ICD-10-PCS; principal; 2016-05-30)
PROC: 0BH17EZ Insertion of Endotracheal Airway into Trachea, Via Natural or Artificial Opening (ICD-10-PCS; 2016-05-30)
DX: A41.9 Sepsis, unspecified organism (principal); J69.0 Pneumonitis due to inhalation of food and vomit; R65.21 Severe sepsis with septic shock; J96.02 Acute respiratory failure with hypercapnia; J96.01 Acute respiratory failure with hypoxia; G93.41 Metabolic encephalopathy; N17.9 Acute kidney failure, unspecified; E87.4 Mixed disorder of acid-base balance; M62.82 Rhabdomyolysis; J44.0 Chronic obstructive pulmonary disease with (acute) lower respiratory infection; F10.230 Alcohol dependence with withdrawal, uncomplicated; K92.1 Melena; D69.59 Other secondary thrombocytopenia; I10 Essential (primary) hypertension; E78.5 Hyperlipidemia, unspecified; F41.8 Other specified anxiety disorders; G89.29 Other chronic pain; F17.210 Nicotine dependence, cigarettes, uncomplicated; I73.9 Peripheral vascular disease, unspecified; D64.9 Anemia, unspecified; E87.6 Hypokalemia; T50.1X5A Adverse effect of loop [high-ceiling] diuretics, initial encounter; Z86.73 Personal history of transient ischemic attack (TIA), and cerebral infarction without residual deficits; Z79.891 Long term (current) use of opiate analgesic; Z79.899 Other long term (current) drug therapy
CPT/HCPCS: 36415; 70450; 71010; 71020; 80048; 80053; 80076; 80202; 81001; 82270; 82465; 82550; 82553; 82805; 82948; 83605; 83735; 83880; 84100; 84134; 84450; 84478; 84484; 85025; 85027; 85379; 85610; 85730; 86022; 87040; 87070; 87205; 87324; 87449; 93005; 93010; 93306; 93923; 94002; 94003; 94150; 94640; 94660; 94761; 94799; 96361; 96365; 96366; 96368; C9113; G0477; G0480; J0131; J0330; J1265; J1630; J1650; J1652; J1940; J2060; J2270; J2370; J2543; J3370; J3480; J7030; J7040; J7050; J7070; 97001-GP; 97110-GP; 97116-GP; 97530-GP; 99285-25; S0164